=== PATIENT | male | born 1995 | race Caucasian/White ===

== ENCOUNTER 2017-06-02 08:42 | Emergency (ER) | payer OTHER ==
[2017-06-02 08:46] VITALS: BP 143/88; PULSE 70; TEMP 98.9; BMI 26.6
--- NOTE | 2017-06-02 09:12 | PDOC ---
History of Present Illness - General Chief Complaint: Pain, Acute Stated Complaint: HIT IN HEAD Time Seen by Provider: 06/02/17 09:09 History Source: Patient, Family Exam Limitations: No Limitations - History of Present Illness Initial Comments: 06/02/17 09:12 21 year old male with no past medical history presents with head injury. Was playing hockey yesterday night in his backyard. Around midnight, a hockey puck was hit on top of scalp. Sustained approx 1 cm superficial linear laceration. No loss of consciousness. Does not take any anticoagulants. No headache. Reported mild nausea, but denies neurological deficits or vomiting. Able to ambulate. Last tetanus within 5 years. Past History - Past Medical History Allergies/Adverse Reactions: Allergies Allergy/AdvReac Type Severity Reaction Status Date / Time cefprozil [From Cefzil] Allergy Verified 06/02/17 08:43 Home Medications: Ambulatory Orders NK [No Known Home Medication] 06/02/17 COPD: No Other medical history: DENIES - Suicide/Smoking/Psychosocial Hx Smoking History: Never smoked Hx Alcohol Use: Yes Drug/Substance Use Hx: No Substance Use Type: Alcohol Review of Systems - Review of Systems Able to Perform ROS?: Yes Comments:: 06/02/17 09:14 GENERAL/CONSTITUTIONAL: No fever, weakness. HEAD, EYES, EARS, NOSE AND THROAT: No change in vision. No ear pain or discharge. No sore throat. CARDIOVASCULAR: No chest pain or shortness of breath. RESPIRATORY: No cough, wheezing, or hemoptysis. GASTROINTESTINAL: No abdominal pain, nausea, vomiting, diarrhea, or decreased PO intolerance. GENITOURINARY: No dysuria, frequency, or change in urination. MUSCULOSKELETAL: No joint or muscle swelling or pain. No neck or back pain. SKIN: No rash NEUROLOGIC: No headache, vertigo, loss of consciousness, or change in strength/ sensation. + Head injury ENDOCRINE: No increased thirst. No abnormal weight change. HEMATOLOGIC/LYMPHATIC: No anemia, easy bleeding, or history of blood clots. ALLERGIC/IMMUNOLOGIC: No hives or skin allergy. *Physical Exam - Vital Signs Last Vital Signs Temp Pulse Resp BP Pulse Ox 98.9 F 70 16 143/88 100 06/02/17 08:43 06/02/17 08:43 06/02/17 08:43 06/02/17 08:43 06/02/17 08:43 - Physical Exam Comments: 06/02/17 09:15 GENERAL: Awake, alert, and fully oriented, in no acute distress. HEAD: ~ 1 cm superficial linear laceration. No abrasions or avulsions. EYES: PERRLA, EOMI, sclera anicteric, conjunctiva clear ENT: Auricles normal inspection, hearing grossly normal, nares patent, NECK: Normal ROM, supple EXTREMITIES: Normal range of motion, no edema. No clubbing or cyanosis. No cords, erythema, or tenderness NEUROLOGICAL: Cranial nerves II through XII grossly intact. Normal speech, normal gait SKIN: Warm, Dry, normal turgor, no rashes or lesions noted. Procedures - Laceration/Wound Repair Upper Head Wound Length: to 2.5 cm Wound Explored: clean Wound's Depth, Shape: superficial Irrigated w/ Saline: Yes Anesthesia: 2% Lidocaine w/ Epi Amount of Anesthetic (ccs): 2 Wound Debrided: minimal Wound Repaired With: [place] Layer Closure: No Progress: 06/02/17 09:09 Wound irrigated with 500 cc of sterile saline Closed with 2 delmi with excellent approximation Medical Decision Making - Medical Decision Making 06/02/17 09:16 Vital Signs Temp Pulse Resp BP Pulse Ox 98.9 F 70 16 143/88 100 06/02/17 08:43 06/02/17 08:43 06/02/17 08:43 06/02/17 08:43 06/02/17 08:43 According to the [place] head CT rules, we'll defer on head CT at this time. Patient exhibiting no symptoms at this time. Tetanus is updated. Wound was repaired with 2 delmi. I advised patient to minimize scarring to minimize sun exposure. Fever precautions given. I advised patient that he may potentially a sustained concussion with the mild nausea but if symptoms stress could worsen to return to the ER for head CT. Patient and family verbalizes and understands plan. I discussed the physical exam findings, ancillary test results and final diagnoses with the patient. I answered all of the patient's questions. The patient was satisfied with the care received and felt comfortable with the discharge plan and treatment plan. The patient will call their primary care physician within 24 hours to arrange follow-up and will return to the Emergency Department with any new, persistant or worsening symptoms. *DC/Admit/Observation/Transfer Diagnosis at time of Disposition: Laceration Closed head injury Qualifiers: Encounter type: initial encounter Qualified Code(s): S09.90XA - Unspecified injury of head, initial encounter - Discharge Dispostion Disposition: HOME Condition at time of disposition: Improved Admit: No - Referrals - Patient Instructions Printed Discharge Instructions: DI for Laceration Repair -- [place], DI for Closed Head Injury Additional Instructions: You have [address] Return to your doctor or to the ER in 5-7 days for staple removal. During this time, you can let warm soapy or soft shampoos in her hair but do not scrub the wound directly. If you develop any fevers or purulent drainage, return to the ER for further evaluation. You have had a head injury. If you have severe headaches, uncontrollable vomiting, extreme lethargy, return to the ER for further evaluation. - Post Discharge Activity
== END 2017-06-02 09:15 | disposition home or self-care (01) ==
LOC: FER 08:42
PROC: 0HQ0XZZ Repair Scalp Skin, External Approach (ICD-10-PCS; principal; 2017-06-02)
DX: S01.01XA Laceration without foreign body of scalp, initial encounter (principal); W20.8XXA Other cause of strike by thrown, projected or falling object, initial encounter; Y93.22 Activity, ice hockey; Y92.007 Garden or yard of unspecified non-institutional (private) residence as the place of occurrence of the external cause
CPT/HCPCS: 99282-25